=== PATIENT | male | born 1940 | race Caucasian/White ===

== ENCOUNTER 2019-05-28 18:42 | Emergency (ER) | payer BC ==
[~2019-05-28] VITALS: Ht 175.3 cm; Wt 75.0 kg
[~2019-05-28 18:42] MED LIST: ACET325T33 PO
[2019-05-28 18:44] VITALS: BP 149/67; PULSE 58; RESP 18; Ht 175.3 cm; Wt 75.0 kg
== END 2019-05-28 21:28 | disposition home or self-care (01) ==
LOC: FTE 18:42
DX: S92.512A Displaced fracture of proximal phalanx of left lesser toe(s), initial encounter for closed fracture (principal); M19.072 Primary osteoarthritis, left ankle and foot; W22.01XA Walked into wall, initial encounter; Y92.9 Unspecified place or not applicable
CPT/HCPCS: 73630; L3260; Z7502